=== PATIENT | female | born 1975 | race American Indian/Alaskan Native ===

== ENCOUNTER 2017-07-16 08:05 | Observation (INO) | payer MEDICAID ==
--- NOTE | 2017-07-10 09:56 | Anesthesia Consultation ---
Anesthesia Consult and Med Hx Date of service: 07/10/17 - Airway Anesthetic Teeth Evaluation: Poor (3 broken teeth), Chipped ROM Head & Neck: Adequate Mental/Hyoid Distance: Adequate Mallampati Class: Class II Intubation Access Assessment: Probably Good - Pre-Operative Health Status ASA Pre-Surgery Classification: ASA2 Proposed Anesthetic Plan: General Nerve Block: TAP - Pulmonary Hx Asthma: Yes - Central Nervous System Hx Psychiatric Problems: No - Endocrine Hx Non-Insulin Dependent Diabetes: Yes - Hematic Hx Anemia: Yes - Other Systems Hx Cancer: No
[2017-07-10 10:02] LABS: Basophils % (Auto) 0.7 % (0.0-1.8); Eosinophils # (Auto) 0.3 K/mm3 (0.0-0.4); Eosinophils % (Auto) 4.3 % (0.0-4.3); Hematocrit 33.7 % (30.3-42.9); Lymphocytes # (Auto) 2.1 K/mm3 (1.2-5.4); Lymphocytes % (Auto) 31.2 % (13.4-35.0); Mean Corpuscular HGB Conc 33 % (30-34); Mean Corpuscular Volume 76 fl (79-97); Monocytes # (Auto) 0.4 K/mm3 (0.0-0.8); Monocytes % (Auto) 5.8 % (0.0-7.3); Platelet Count 213 K/mm3 (140-440); Red Blood Count 4.42 M/mm3 (3.65-5.03); Red Cell Distribution Width 16.8 % (13.2-15.2)
[2017-07-10 10:07] LABS: Mean Corpuscular Hemoglobin 25 pg (28-32)
[2017-07-10 10:14] LABS: BUN/Creatinine Ratio 24; Blood Urea Nitrogen 17 mg/dL (7-17); Calcium 9.3 mg/dL (8.4-10.2); Hemolysis Index 4
[~2017-07-16 08:05] MED LIST: MARCAINE 0.5% INFILTRATI NR; NACL P/F VIAL (10 ML) INFILTRATI NR; PEPCID IV NR; SUBLIMAZE IV NR; VERSED IV NR; XYLOCAINE 1% 20 mL INFILTRATI NR
--- NOTE | 2017-07-16 08:09 | History and Physical Report ---
History of Present Illness Date of examination: 07/16/17 Date of admission: 07/16/2017 Chief complaint: menorrhagia History of present illness: 41y/o with a history of symptomatic uterine fibroids. The patient reports heavy menses with the passage of clots. She has been experiencing pelvic pain and discomfort during her menses. The patient had a pelvic ultrasound that demonstrated an enlarged uterus of approximately 13 cm. She had 3 leiomyomas with the largest dominant leiomyoma measuring 11 cm. The patient elected for definitive surgical management and scheduled for robotic hysterectomy. Past History Past Medical History: other (leiomyoma; bronchitis; insulin resistance) Past Surgical History: other (BTL) Social history: single - Obstetrical History : 4 Para: 4 Hx # Term Pregnancies: 4 Number of Pregnancies: 0 Spontaneous Abortions: 0 Induced : 0 Number of Living Children: 4 Medications and Allergies Allergies Allergy/AdvReac Type Severity Reaction Status Date / Time aspirin AdvReac Unknown Swelling Verified 01/29/13 11:55 Home Medications Medication Instructions Recorded Confirmed Last Taken Type ALBUTEROL Inhaler [ProAir HFA 2 puff IH Q6HRT PRN #1 inha 02/02/13 07/09/17 Unknown Rx Inhaler] ALBUTEROL NEB's [Proventil] 2.5 mg IH TID PRN 07/09/17 07/09/17 Unknown History Cholecalciferol (Vitamin D3) 1,000 unit PO QWEEK 07/09/17 07/09/17 Unknown History [Vitamin D3] Metformin HCl [Glucophage] 1,000 mg PO BID 07/09/17 07/09/17 Unknown History metroNIDAZOLE [Metronidazole] 500 mg PO BID 07/09/17 07/09/17 Unknown History Active Meds: Active Medications Bupivacaine HCl (Marcaine 0.5%) 20 ml INFILTRATI PREOP NR Stop: 07/16/17 23:59 Famotidine (Pepcid) 20 mg IV PREOP NR Stop: 07/16/17 23:59 Fentanyl (Sublimaze) 100 mcg IV ONCE NR Stop: 07/16/17 23:59 Sodium Chloride (Nacl 0.9% 1000 Ml) 1,000 mls @ 100 mls/hr IV DIRECT CARRILLO Lidocaine (Xylocaine 1% 20 Ml) 10 ml INFILTRATI PREOP NR Stop: 07/16/17 23:59 Midazolam HCl (Versed) 2 mg IV PREOP NR Stop: 07/16/17 23:59 Review of Systems All systems: negative Genitourinary: vaginal bleeding, pelvic pain - Vital Signs Vital signs: Vital Signs Temp Pulse Resp BP 98.6 F 76 18 126/90 07/10/17 09:20 07/10/17 09:20 07/10/17 09:20 07/10/17 09:20 Temp Pulse Resp BP Pulse Ox 98.6 F 76 18 126/90 07/10/17 09:20 07/10/17 09:20 07/10/17 09:20 07/10/17 09:20 - Physical Exam Breasts: Positive: deferred Cardiovascular: Regular rate Lungs: Positive: Clear to auscultation Abdomen: Positive: normal appearance Results Result Diagrams: 07/10/17 09:30 07/10/17 09:30 All other labs normal. Assessment and Plan - Patient Problems (1) Leiomyoma Status: Acute Plan to address problem: Scheduled for robotic hysterectomy and bilateral salpingectomy (2) Menorrhagia Status: Acute (3) Dysmenorrhea Status: Acute
[2017-07-16] MEDS ORDERED: ANCEF/STERILE WATER 2 GM/20 ML 2 GM/20 ML SYRINGE IV NR (09:00)
[2017-07-16] MEDS: NACL 0.9% 1000 ML 1,000 ML IV SCH (10:00)
[2017-07-16] MEDS ORDERED: NEOSTIGMINE ONE (10:23)
[2017-07-16] MEDS ORDERED: ZEMURON IV ONE (10:23)
[2017-07-16] MEDS ORDERED: XYLOCAINE MPF 2% ONE (10:23)
[2017-07-16] MEDS ORDERED: DIPRIVAN 10 MG/ML IV ONE (10:23)
[2017-07-16] MEDS ORDERED: QUELICIN ONE (10:23)
[2017-07-16] MEDS ORDERED: SUBLIMAZE ONE (10:23)
[2017-07-16] MEDS ORDERED: ZOFRAN ONE (10:23)
[2017-07-16] MEDS ORDERED: ROBINUL ONE ×2 (10:23)
[2017-07-16] MEDS ORDERED: GELFOAM POWDER 1GM MM ONE ×2 (10:36→13:14)
[2017-07-16] MEDS ORDERED: THROMBIN (BOVINE) TP ONE ×2 (10:36→13:14)
[2017-07-16] MEDS ORDERED: NEOSPORIN GU IR ONE ×2 (10:37→13:13)
--- NOTE | 2017-07-16 10:50 | Anesthesia Day of Surgery ---
Anesthesia Day of Surgery - Day of Surgery Patient Examined: Yes Patient H&P Reviewed: Yes Patient is NPO: Yes Beta Blockers: No
[2017-07-16] MEDS ORDERED: METHYLENE BLUE ONE (13:03)
[2017-07-16] MEDS ORDERED: METHYLENE BLUE IV ONE (13:13)
[2017-07-16] MEDS ORDERED: NACL 0.9% IR ONE ×2 (13:13)
[2017-07-16] MEDS ORDERED: TORADOL ONE (14:11)
[2017-07-16] MEDS ORDERED: NARCAN 0.4 MG/1 ML IV PRN (15:03)
[2017-07-16] MEDS ORDERED: MOTRIN PO PRN (15:06)
[2017-07-16] MEDS ORDERED: ZOFRAN IV PRN (15:06)
[2017-07-16] MEDS ORDERED: MILK OF MAGNESIA PO PRN (15:06)
[2017-07-16] MEDS ORDERED: AMBIEN PO PRN (15:06)
[2017-07-16] MEDS ORDERED: TYLENOL PO PRN (15:06)
[2017-07-16] MEDS ORDERED: PERCOCET 5/325 PO PRN (15:06)
--- NOTE | 2017-07-16 15:16 | Operative Report ---
Operative Report Operative Report: Date of surgery: 07/16/2017 Preoperative diagnoses: Symptomatic uterine fibroids; menorrhagia; dysmenorrhea Postoperative diagnoses: Same as above Procedure: Robotic hysterectomy; bilateral salpingectomy; lysis of adhesions Surgeon: Radha Sebastian M.D. Associate Professor Of Church Music: Keely Mcdowell Anesthesia: Gen. endotracheal anesthesia Estimated blood loss: 350 mL Pathology: Uterus, cervix, leiomyoma, bilateral tubes Indication: 41-year-old 004 with a history of symptomatic uterine fibroids. The most recent ultrasound demonstrated a dominant myoma measuring over 11 cm in its greatest dimension. The patient elected to undergo definitive surgical management. Procedure: The patient was taken to the operating room and given general endotracheal anesthesia without complication. She is prepped and draped in a normal sterile fashion. A bivalve speculum was placed in the patient's vagina and a single- tooth tenaculum placed on the anterior lip of the cervix. The uterus was sounded with the uterine sound. A [employer] uterine manipulator was placed in the bivalve speculum was then removed. Attention was then turned to the patient's abdomen where a millimeter supra umbilical skin incision was then made. A Veress needle was placed and peritoneal entry was verified water-filled syringe. Insufflation of the peritoneal cavity was performed with CO2 gas. The 12 mm trocar was then placed under direct visualization. An additional 8 mm trocar was placed on the patient's left and right lateral side just opposite of the supraumbilical trocar. An additional 5 mm right lateral trocar was then placed as the accessory port. The patient was then placed in steep Trendelenburg. The da Daniel robot was then engaged. General survey of the patient's abdomen and pelvis revealed a significantly enlarged fibroid uterus past the umbilicus. There was evidence of an omental adhesion to the anterior abdominal wall that was excised with the monopolar scissors. The tubes and ovaries were normal in appearance. A fenestrated forcep was placed in arm 2 and a vessel sealer was placed in arm 1. The surgeon then transferred to the surgical console. The mesosalpinx was then isolated on the right. The vessel sealer was used to coagulate the mesosalpinx which was then transected. The tube was transected from the ovary. The tubo-ovarian ligament was then coagulated and transected. The round ligament was then coagulated and transected also. The vesicouterine peritoneum was then entered from the patient 's right side. The uterine vessels were then coagulated with the vessel sealer. The vessels were then transected . Attention was then turned to the patient's left side where the tubo-ovarian ligament and mesosalpinx were again isolated coagulated and transected. The vesical peritoneum was then entered from the left and joined in the midline. Peritoneum was reflected off of the lower uterine segment. Uterine vessels were then coagulated and then transected. The blood supply to the uterus was adequately contained. The uterus was significantly enlarged secondary to the leiomyomas. A myomectomy had to be performed of the largest myoma in order to decompress the uterus. A considerable amount of time was consumed bivalving the uterus and the leiomyoma in order to pass the specimen through the vagina. A posterior colpotomy was made. The V care ring was visualized. Posterior colpotomy was created with the monopolar scissors. The incision was continued circumferentially until anterior colpotomy was made. The cervix and uterus were amputated from the vaginal cuff. The uterus was then removed along with the leiomyomas and tubes bilaterally through the vagina and a warm laparotomy sponge was placed and maintain the pneumoperitoneum. The vaginal cuff was then closed in a running fashion with V lock suture. Irrigation of the pelvis was performed. Gelfoam with thrombin was applied to the incision. The supraumbilical 12 mm trocar site was closed with the Ad Bo device. The skin was then reapproximated with 4-0 Monocryl. The tissue was sent to pathology which included the cervix ,uterus, leiomyomas and bilateral tubes. The patient was then successfully extubated. She was then taken to the recovery room in stable condition. All sponge laps and needle counts were correct x2.
[2017-07-16] MEDS ORDERED: MORPHINE PCA 30MG/30ML IV SCH (16:00)
[2017-07-16] MEDS ORDERED: D5LR 1,000 ML IV SCH (16:00)
[2017-07-16] MEDS: TORADOL IV SCH (20:01)
[2017-07-17] MEDS: TORADOL IV SCH (01:30)
[2017-07-17 04:20] LABS: Hematocrit 25.4 % (30.3-42.9); Hemoglobin 8.2 gm/dl (10.1-14.3)
[2017-07-17] MEDS: NACL 0.9% 1000 ML 1,000 ML IV SCH (04:34)
--- NOTE | 2017-07-17 13:40 | Progress Note ---
Assessment and Plan - Patient Problems (1) Leiomyoma Current Visit: No Status: Acute Plan to address problem: routine postoperative care discharge home once patient voids and tolerates a regular diet (2) Menorrhagia Current Visit: No Status: Acute (3) Dysmenorrhea Current Visit: No Status: Acute Subjective - Subjective Date of service: 07/17/17 Interval history: Patient denies nausea or vomiting but states she does not feel like eating. Pain is controlled better. Patient reports: appetite normal, pain well controlled Objective - Vital Signs Latest vital signs: Vital Signs Temp Pulse Resp BP BP Pulse Ox 07/17/17 09:40 98.4 F 82 18 102/61 95 07/17/17 05:08 98.2 F 79 20 96/53 94 07/17/17 03:09 18 07/17/17 01:23 20 07/17/17 00:18 98.3 F 70 20 93/52 95 07/16/17 23:18 20 07/16/17 21:28 18 07/16/17 20:42 98.1 F 65 20 91/48 93 07/16/17 19:52 18 07/16/17 16:20 97.7 F 80 18 131/76 07/16/17 16:00 97.7 F 80 18 131/76 98 07/16/17 15:45 62 19 122/77 100 07/16/17 15:30 97.3 F L 63 13 118/71 100 07/16/17 15:15 67 12 119/54 100 07/16/17 15:00 67 12 129/69 100 07/16/17 14:45 61 16 119/70 100 07/16/17 14:40 70 18 123/79 100 07/16/17 14:35 72 14 121/73 100 07/16/17 14:30 79 16 123/78 93 07/16/17 14:27 97.0 F L 85 19 122/77 94 Intake and Output 07/16/17 07/17/17 07/17/17 22:59 06:59 14:59 Intake Total 1570 120 120 Output Total 925 1100 Balance 645 -980 120 Intake: IV 1450 NaCl 0.9% 1000 ml 1,000 1000 ml @ 100 mls/hr IV DIRECT CARRILLO Rx#:[id number] Oral 120 Intake, Free Water 120 120 Output: Urine 925 1100 Indwelling Catheter 800 1100 Other: Total, Intake Amount 120 Total, Output Amount 400 1100 Voiding Method Indwelling Catheter Indwelling Catheter - Exam Incision: Present: normal - Labs Labs: Abnormal lab results 07/17/17 07/17/17 Range/Units 03:24 05:19 Hgb 8.2 L (10.1-14.3) gm/dl Hct 25.4 L (30.3-42.9) % POC Glucose 141 H (70-105)
--- NOTE | 2017-07-17 13:44 | Discharge Summary ---
Providers - Providers Date of Admission: 07/16/17 15:04 Date of discharge: 07/17/17 Attending physician: ELOY SANDERS Primary care physician: DONTAE MACARIO Hospitalization Reason for admission: other (symptomatic uterine fibroids) Procedure: other (robotic hysterectomy ) Incision: normal Discharge diagnosis: other (Uterine fibroids) Hospital course: Patient was admitted the day of surgery and underwent a robotic hysterectomy. See op note. Patient meet discharge criteria at the time of her release. Condition at discharge: Good Disposition: DC-[id number] TO HOME OR SELFCARE - Discharge Diagnoses (1) Leiomyoma Status: Acute (2) Menorrhagia Status: Acute (3) Dysmenorrhea Status: Acute Plan - Discharge Medications Prescriptions: Docusate Sodium [Colace] 100 mg PO BID PRN #60 capsule PRN Reason: Constipation Ferrous Sulfate [Feosol 325 MG tab] 325 mg PO BID #60 tablet Ibuprofen [Motrin] 800 mg PO Q8HR PRN #60 tablet PRN Reason: pain Oxycodone HCl/Acetaminophen [Percocet 7.5/325 mg] 1 each PO Q6HR PRN #45 tablet PRN Reason: Pain - Provider Discharge Summary Activity: no sex for 6 weeks, no heavy lifting 4 weeks, no strenuous exercise Diet: routine Instructions: routine Additional instructions: [] Smoking cessation referral if applicable(refer to patient education folder for contact #) [] Refer to [facility] Booklet Call your doctor immediately for: * Fever > 100.5 * Heavy vaginal bleeding ( >1 pad per hour) * Severe persistent headache * Shortness of breath * Reddened, hot, painful area to leg or breast * Drainage or odor from incision. * Keep incision clean and dry at all times and follow doctor's instructions regarding bathing/showering schedule follow up with Dr. Wright in 4 weeks - Follow up plan
[2017-07-17 17:13] VITALS: BP 107/69
== END 2017-07-17 19:45 | disposition home or self-care (01) ==
LOC: OR 08:05 → OB 15:04
PROVIDERS: ADMIT Obstetrics & Gynecology; ATTEND Obstetrics & Gynecology
DX: D21.9 Benign neoplasm of connective and other soft tissue, unspecified (principal); N92.0 Excessive and frequent menstruation with regular cycle
CPT/HCPCS: 36415; 58554; 64450; 80048; 82962; 84703; 85014; 85018; 85025; 86850; 86900; 86901; 88307; 96374; 96375; 96376; A4217; A4649; G0378; J0330; J0690; J1885; J2250; J2270; J2405; J2704; J2710; J3010; J7030; J7121; Q9968; S2900; 88302

== ENCOUNTER 2018-08-04 16:34 | Outpatient (CLI) | payer MEDICAID ==
[2018-08-04 18:00] LABS: Bilirubin,Urine NEG (Negative); Blood,Urine NEG (Negative); Color,Urine Straw (Yellow); Mucus,Urine FEW /HPF; Protein,Urine <15 mg/dL mg/dL (Negative); Urobilinogen,Urine < 2.0 mg/dL (<2.0)
== END 2018-08-04 16:35 | disposition home or self-care (01) ==
LOC: LAB 16:34
PROVIDERS: ATTEND Internal Medicine
DX: N39.0 Urinary tract infection, site not specified (principal); J45.909 Unspecified asthma, uncomplicated; E11.9 Type 2 diabetes mellitus without complications
CPT/HCPCS: 81001; 87086

== ENCOUNTER 2018-10-19 09:12 | Outpatient (CLI) | payer MEDICAID ==
[2018-10-19 10:12] LABS: Hematocrit 42.1 % (30.3-42.9); Hemoglobin 13.9 gm/dl (10.1-14.3); Mean Corpuscular HGB Conc 33 % (30-34); Mean Corpuscular Volume 87 fl (79-97); Platelet Count 193 K/mm3 (140-440); Red Blood Count 4.82 M/mm3 (3.65-5.03)
[2018-10-19 10:23] LABS: Alanine Aminotransferase 15 units/L (7-56); Albumin 4.8 g/dL (3.9-5); BUN/Creatinine Ratio 23; Blood Urea Nitrogen 18 mg/dL (7-17); Calcium 9.8 mg/dL (8.4-10.2); Chol/HDL Ratio 3.42 %; HDL Cholesterol 68 mg/dL (40-59); Hemolysis Index 1; LDL Cholesterol,Direct 179 mg/dL (50-130)
== END 2018-10-19 09:13 | disposition home or self-care (01) ==
LOC: LAB 09:12
PROVIDERS: ATTEND Internal Medicine
DX: Z13.21 Encounter for screening for nutritional disorder (principal); E11.9 Type 2 diabetes mellitus without complications; E78.5 Hyperlipidemia, unspecified; E55.9 Vitamin D deficiency, unspecified; J45.909 Unspecified asthma, uncomplicated
CPT/HCPCS: 36415; 80053; 80061; 82306; 82607; 83036; 84443; 85027

== ENCOUNTER 2018-12-16 12:12 | Outpatient (CLI) | payer MEDICAID ==
--- NOTE | 2018-12-16 13:25 | XRay Report ---
AP and lateral views of the right knee INDICATION / CLINICAL INFORMATION: M25.561 PAIN IN RIGHT KNEE. COMPARISON: None available. FINDINGS: BONES/JOINT(S): No acute fracture or subluxation. Mild tricompartmental DJD with mild joint space los s and marginal osteophyte formation. No significant joint effusion. SOFT TISSUES: No significant abnormality. ADDITIONAL FINDINGS: None. Signer Name: Joseluis Herbert MD Signed: 12/16/2018 1:21 PM Workstation Name: [id number]
== END 2018-12-16 12:13 | disposition home or self-care (01) ==
LOC: XRAY 12:12
PROVIDERS: ATTEND Internal Medicine
DX: M17.11 Unilateral primary osteoarthritis, right knee (principal); J45.909 Unspecified asthma, uncomplicated; Z98.51 Tubal ligation status; Z98.890 Other specified postprocedural states; M25.761 Osteophyte, right knee

== ENCOUNTER 2020-07-24 10:11 | Outpatient (CLI) | payer OTHER ==
[2020-07-24 10:37] LABS: Basophils % (Auto) 0.7 % (0.0-1.8); Eosinophils # (Auto) 0.1 K/mm3 (0.0-0.4); Eosinophils % (Auto) 2.2 % (0.0-4.3); Hematocrit 39.6 % (30.3-42.9); Hemoglobin 13.6 gm/dl (10.1-14.3); Lymphocytes # (Auto) 2.1 K/mm3 (1.2-5.4); Lymphocytes % (Auto) 42.9 % (13.4-35.0); Mean Corpuscular HGB Conc 34 % (30-34); Mean Corpuscular Volume 89 fl (79-97); Monocytes # (Auto) 0.3 K/mm3 (0.0-0.8); Monocytes % (Auto) 6.2 % (0.0-7.3); Platelet Count 177 K/mm3 (140-440); Red Blood Count 4.48 M/mm3 (3.65-5.03); Red Cell Distribution Width 12.6 % (13.2-15.2)
[2020-07-24 10:59] LABS: Alanine Aminotransferase 15 units/L (7-56); Albumin 4.8 g/dL (3.9-5); Blood Urea Nitrogen 10 mg/dL (7-17); Calcium 9.6 mg/dL (8.4-10.2); Chol/HDL Ratio 3.55 %; HDL Cholesterol 54 mg/dL (40-59); Hemolysis Index 2; LDL Cholesterol,Direct 129 mg/dL (50-130)
[2020-07-24 11:04] LABS: BUN/Creatinine Ratio 14
[2020-07-27 15:01] LABS: Vitamin D, 25-OH, D2 <4 ng/mL
== END 2020-07-24 10:12 | disposition home or self-care (01) ==
LOC: LAB 10:11
PROVIDERS: ATTEND Internal Medicine
DX: Z00.00 Encounter for general adult medical examination without abnormal findings (principal); E55.9 Vitamin D deficiency, unspecified; E11.9 Type 2 diabetes mellitus without complications; E78.5 Hyperlipidemia, unspecified; Z13.29 Encounter for screening for other suspected endocrine disorder
CPT/HCPCS: 36415; 80053; 80061; 82306; 83036; 84443; 85025

== ENCOUNTER 2020-08-17 12:37 | Outpatient (CLI) | payer OTHER ==
--- NOTE | 2020-08-17 15:52 | Mammography Report ---
DIGITAL SCREENING MAMMOGRAM WITH CAD, 08/17/2020 CLINICAL INFORMATION / INDICATION: Routine screening mammography. SCRN MAMMO TECHNIQUE: Digital bilateral 2D mammography was obtained in the craniocaudal and mediolateral obliqu e projections. This examination was interpreted with the benefit of Computer-Aided Detection analysis . COMPARISON: 01/09/18. FINDINGS: Breast Density: The breasts are heterogeneously dense, which may obscure small masses. No dominant mass, suspicious calcifications, or architectural distortion in either breast. IMPRESSION: No mammographic evidence of malignancy. Follow up recommendation: Routine yearly BI-RADS Category 1: Negative. A "normal" or negative report should not discourage follow up or biopsy of a clinically significant f inding. A written summary of these findings will be mailed to the patient. The patient will be entered into a mammography reporting system which will generate a reminder letter for the patient's next appointmen t at the appropriate interval. The [employer] recommends yearly mammograms starting at age 40 and continuing as l audra as a woman is in good health. Breast MRI is recommended for women with an approximate 20-25% or greater lifetime risk of breast cancer, including women with a strong family history of breast or ova issac cancer or who have been treated for Hodgkin's disease. Signer Name: Grant Scott MD Signed: 08/17/2020 3:48 PM Workstation Name: [id number]
== END 2020-08-17 12:38 | disposition home or self-care (01) ==
LOC: MAMMO 12:37
PROVIDERS: ATTEND Internal Medicine
DX: Z12.31 Encounter for screening mammogram for malignant neoplasm of breast (principal)
CPT/HCPCS: 77067

== ENCOUNTER 2021-01-23 09:30 | Outpatient (CLI) | payer OTHER ==
[2021-01-23 10:31] LABS: Chol/HDL Ratio 3.66 %
--- NOTE | 2021-01-23 10:33 | XRay Report ---
LEFT KNEE HISTORY: Left knee pain for several years. COMPARISON: None. TECHNIQUE: 2 views of the right knee obtained. FINDINGS: Bones: No fracture or dislocation. Joint spaces: Mild medial compartment joint space narrowing. Soft tissues: No significant abnormality. Additional findings: None. IMPRESSION: Left knee without evidence of acute osseous injury. Mild medial compartment joint space narrowing. Signer Name: Hill Dillon MD Signed: 01/23/2021 10:29 AM Workstation Name: [id number]
== END 2021-01-23 09:31 | disposition home or self-care (01) ==
LOC: LAB 09:30
PROVIDERS: ATTEND Internal Medicine
DX: M17.12 Unilateral primary osteoarthritis, left knee (principal); E11.9 Type 2 diabetes mellitus without complications; E78.5 Hyperlipidemia, unspecified
CPT/HCPCS: 36415; 80061; 83036

== ENCOUNTER 2021-04-30 09:38 | Outpatient (CLI) | payer OTHER ==
[2021-04-30 10:34] LABS: Chol/HDL Ratio 2.87 %
== END 2021-04-30 09:39 | disposition home or self-care (01) ==
LOC: LAB 09:38
PROVIDERS: ATTEND Internal Medicine
DX: E78.5 Hyperlipidemia, unspecified (principal); E11.65 Type 2 diabetes mellitus with hyperglycemia
CPT/HCPCS: 36415; 80061; 83036

== ENCOUNTER 2021-09-10 09:15 | Emergency (ER) | payer OTHER ==
[2021-09-10] MEDS ORDERED: IPRATROPIUM 0.02% NEBU 2.5 ML IH ONE (09:43)
[2021-09-10] MEDS ORDERED: ALBUTEROL 2.5 MG/3 ML NEBU IH ONE (09:43)
[2021-09-10] MEDS ORDERED: methylPREDNISolone Sod Succinate 125 MG/2 ML INJ IM ONE (09:43)
--- NOTE | 2021-09-10 10:49 | Emergency Department Report ---
Minor Respiratory - HPI Chief Complaint: Dyspnea/Respdistress Stated Complaint: ASTHMA Time Seen by Provider: 09/10/21 09:43 Duration: 3 Days Pain Location: Chest Severity: mild Minor Respiratory: Yes Able to Tolerate Fluids, Yes Shortness of Breath, No Rhinorrhea, No Sore Throat, No Ear Pain, No Cough, No Sick Contacts, No Hemoptysis, No Chest Pain, No Fever ED Review of Systems ROS: Stated complaint: ASTHMA Other details as noted in HPI Comment: All other systems reviewed and negative ED Past Medical Hx - Past Medical History Previous Medical History?: Yes Hx Diabetes: Yes ("borderline") Hx Asthma: Yes - Surgical History Past Surgical History?: Yes - Family History Family history: no significant - Social History Smoking Status: Never Smoker Substance Use Type: None - Medications Home Medications: Home Medications Medication Instructions Recorded Confirmed Last Taken Type ALBUTEROL NEB's [Proventil] 2.5 mg IH TID PRN 07/09/17 07/16/17 1 Month Ago History ~06/15/17 Cholecalciferol (Vitamin D3) 1,000 unit PO QWEEK 07/09/17 07/09/17 07/15/17 History [Vitamin D3] Metformin HCl [Glucophage] 1,000 mg PO BID 07/09/17 07/09/17 07/15/17 History Docusate Sodium [Colace] 100 mg PO BID PRN #60 capsule 07/17/17 Unknown Rx Ferrous Sulfate [Feosol 325 MG tab] 325 mg PO BID #60 tablet 07/17/17 Unknown Rx Albuterol Mdi (or & Nicu Only) 2 puff IH Q6HRT PRN #1 inha 09/10/21 Unknown Rx [ProAir HFA Inhaler] Albuterol Mdi (or & Nicu Only) 2 puff IH QID PRN #1 inhalation 09/10/21 Unknown Rx [ProAir HFA Inhaler] Cetirizine HCl [ZyrTEC] 10 mg PO DAILY #30 capsule 09/10/21 Unknown Rx predniSONE [Deltasone] 20 mg PO DAILY #5 tablet 09/10/21 Unknown Rx Minor Respiratory Exam - Exam General: Vital signs noted. No distress. Alert and acting appropriately. HEENT: Yes Moist Mucous Membranes, No Pharyngeal Erythema, No Pharyngeal Exudates, No Rhinorrhea, No Conjuctival Injection, No Frontal Tenderness, No Maxillary Tenderness Ear: Neither TM Bulge, Neither TM Erythema, Neither EAC Pain, Neither EAC Discharge Neck: Yes Supple, No Adenopathy Lungs: Yes Good Air Exchange, No Wheezes, No Ronchi, No Stridor, No Cough, No Labored Respirations, No Retractions, No Use of Accessory Muscles, No Other Abnormal Lung Sounds Heart: Yes Regular, No Murmur Abdomen: Yes Normal Bowel Sounds, No Tenderness, No Peritoneal Signs Skin: No Rash, No Edema Neurologic: Alert and oriented, no deficits. Musculoskeletal: Unremarkable. ED Course Vital Signs 09/10/21 09:30 Temperature 98.9 F Pulse Rate 96 H Respiratory 22 Rate Blood Pressure 131/86 O2 Sat by Pulse 95 Oximetry ED Medical Decision Making - Medical Decision Making Vital Signs 09/10/21 09:30 Temperature 98.9 F Pulse Rate 96 H Respiratory 22 Rate Blood Pressure 131/86 O2 Sat by Pulse 95 Oximetry no fever or chills No purulent sputum No hypotension or tachycardia Albuterol 10 and Atrovent 1 provided in the ER along with 125 mg IM Solu-Medrol. Critical care attestation.: If time is entered above; I have spent that time in minutes in the direct care of this critically ill patient, excluding procedure time. ED Disposition Clinical Impression: Asthma with acute exacerbation Disposition: HOME / SELF CARE / HOMELESS Is pt being admited?: No Does the pt Need Aspirin: No Condition: Stable Instructions: Asthma, Adult Additional Instructions: meds as ordered follow up with pcp referral below diet and activity as tolerated Referrals: IRWIN STRAUSS MD [Staff Physician] - 3-5 Days Time of Disposition: 10:54
[2021-09-10 12:03] VITALS: BP 146/89
== END 2021-09-10 12:02 | disposition home or self-care (01) ==
LOC: ED 09:15
DX: J45.901 Unspecified asthma with (acute) exacerbation (principal); Z88.6 Allergy status to analgesic agent; Z79.899 Other long term (current) drug therapy
CPT/HCPCS: 94640; 96372; 99282; J2930

== ENCOUNTER 2021-10-01 08:49 | Outpatient (CLI) | payer OTHER ==
[2021-10-01 12:32] LABS: Basophils % (Auto) 0.4 % (0.0-1.8); Eosinophils # (Auto) 0.5 K/mm3 (0.0-0.4); Eosinophils % (Auto) 6.3 % (0.0-4.3); Hematocrit 41.2 % (30.3-42.9); Hemoglobin 13.2 gm/dl (10.1-14.3); Lymphocytes # (Auto) 2.6 K/mm3 (1.2-5.4); Lymphocytes % (Auto) 35.7 % (13.4-35.0); Mean Corpuscular HGB Conc 32 % (30-34); Mean Corpuscular Volume 92 fl (79-97); Monocytes # (Auto) 0.4 K/mm3 (0.0-0.8); Monocytes % (Auto) 5.9 % (0.0-7.3); Platelet Count 176 K/mm3 (140-440); Red Blood Count 4.49 M/mm3 (3.65-5.03); Red Cell Distribution Width 14.5 % (13.2-15.2)
[2021-10-01 14:10] LABS: Alanine Aminotransferase 28 units/L (7-56); Albumin 4.5 g/dL (3.9-5); BUN/Creatinine Ratio 13; Blood Urea Nitrogen 13 mg/dL (7-17); Calcium 9.7 mg/dL (8.4-10.2); HDL Cholesterol 80 mg/dL (40-59); Hemolysis Index 16; LDL Cholesterol,Direct 155 mg/dL (50-130)
[2021-10-01 15:18] LABS: Creatinine,Urine 102.7 mg/dL (0.1-20.0)
[2021-10-01 15:22] LABS: Microalbumin/Creatinine Ratio 11.6 ug/mg
== END 2021-10-01 08:50 | disposition home or self-care (01) ==
LOC: LABHHL 08:49
PROVIDERS: ATTEND Internal Medicine
DX: E11.65 Type 2 diabetes mellitus with hyperglycemia (principal); E55.9 Vitamin D deficiency, unspecified; E78.5 Hyperlipidemia, unspecified
CPT/HCPCS: 36415; 80053; 80061; 82043; 82306; 83036; 84443; 85025

== ENCOUNTER 2021-10-11 11:52 | Outpatient (CLI) | payer OTHER | END 2021-10-11 11:53 | disposition home or self-care (01) | LOC: MAMMO 11:52 | PROVIDERS: ATTEND Internal Medicine | DX: Z12.31 Encounter for screening mammogram for malignant neoplasm of breast (principal) | CPT/HCPCS: 77067 ==